=== PATIENT | male | born 1985 | race Caucasian/White ===

== ENCOUNTER 2017-10-27 16:48 | Outpatient (RCR) | payer BC ==
[~2017-10-27 16:48] MED LIST: ACHYD1T PO; CPR500T PO; HYDR-3876 PO; NITR-68 PO; NITR100C3 PO; POTA15TA PO; TAMS0.4C98 PO
--- NOTE | 2017-10-27 17:45 | Diagnostic Imaging Report ---
INDICATION: History of stones. TECHNIQUE: Three supine views of the abdomen at 05:26 p.m. CORRELATION STUDY: 10/21/2016. FINDINGS: There is a moderate amount of overlying bowel gas and stool obscuring detail for assessment of renal calcification. Given this, no definitive evidence of calcification over the renal silhouettes and/or along the expected course of the ureters. No evidence of bowel obstruction. Osseous structures are unremarkable. IMPRESSION: 1. No definitive evidence for presence of calcifications over the renal silhouette and/or expected course of the ureters, obscured by bowel gas and stool. Dictated by: Dictated on workstation # [id number]
== END 2018-01-25 | disposition home or self-care (01) ==
LOC: LAB 16:48
PROVIDERS: ATTEND Urology
DX: Z87.442 Personal history of urinary calculi (principal)
CPT/HCPCS: 36415; 74018; 82140; 82340; 82507; 82570; 83735; 83945; 83986; 84105; 84133; 84300; 84392; 84560

== ENCOUNTER → 2018-10-26 | Outpatient (CLI) | payer BC ==
--- NOTE | 2018-10-26 18:09 | Diagnostic Imaging Report ---
INDICATION: Pain. FINDINGS: Bowel gas pattern is normal. No suspicious calcifications. No gross elevation of the fecal load. IMPRESSION: No acute finding apparent. Dictated by: Dictated on workstation # [id number]
== END ==
LOC: RAD 16:52
PROVIDERS: ATTEND Urology
DX: R10.9 Unspecified abdominal pain (principal); Z87.442 Personal history of urinary calculi
CPT/HCPCS: 74018

== ENCOUNTER 2019-11-01 16:51 | Outpatient (RCR) | payer BC ==
[~2019-11-01 16:51] MED LIST changes: -TAMS0.4C98 PO; +TMSL.4C PO
--- NOTE | 2019-11-01 17:41 | Diagnostic Imaging Report ---
INDICATION: History of stone, checkup. COMPARISON STUDY: KUB from 10/26/2018. FINDINGS: Supine view of the abdomen demonstrates no visible renal or ureteral calculi. Slightly increased stool is seen throughout the colon. The osseous structures are normal. IMPRESSION: No calculi are present. Dictated by: Dictated on workstation # [id number]
== END 2020-01-30 | disposition home or self-care (01) ==
LOC: RAD 16:51 → EDSTATUS 11-28 13:40
PROVIDERS: ATTEND Urology
DX: Z87.442 Personal history of urinary calculi (principal)
CPT/HCPCS: 36415; 74018; 82140; 82340; 82507; 82570; 83735; 83945; 83986; 84105; 84133; 84300; 84392; 84560

== ENCOUNTER → 2020-10-30 | Outpatient (CLI) | payer BC ==
[~2020-10-30] MED LIST changes: -HYDR-3876 PO; +HYDR-3920 PO
--- NOTE | 2020-10-30 17:43 | Diagnostic Imaging Report ---
INDICATION: Follow-up renal calculi. COMPARISON: 11/01/2019 FINDINGS: Single supine radiographic view of the abdomen was obtained and demonstrates nondistended loops of small bowel. There is no large collection of free peritoneal air. Moderate air and stool are seen scattered throughout the colon. No unexpected extraosseous calcifications or radiopaque foreign bodies are seen. Bony structures show no gross acute abnormalities. IMPRESSION: 1. Nonobstructed small bowel gas pattern. 2. Moderate colonic air and stool. Please correlate for constipation Dictated by: Dictated on workstation # [id number]
== END ==
LOC: RAD 16:39
PROVIDERS: ATTEND Urology
DX: Z87.442 Personal history of urinary calculi (principal)
CPT/HCPCS: 74018

== ENCOUNTER → 2021-11-06 | Outpatient (CLI) | payer BC ==
--- NOTE | 2021-11-06 17:07 | Diagnostic Imaging Report ---
EXAMINATION: Abdomen 1 view. HISTORY: Renal stones. COMPARISON: 10/30/2020. FINDINGS: There is a moderate amount of gas and stool throughout the colon. Nonobstructive bowel gas pattern. No radiopaque foreign body or obvious radiopaque renal calculus. The lung bases are clear. The osseous structures are intact. IMPRESSION: Moderate stool burden without other acute abnormality in the abdomen. No visualized radiopaque renal calculus. Dictated by: Dictated on workstation # [id number]
== END ==
LOC: RAD 16:23
PROVIDERS: ATTEND Urology
DX: N20.0 Calculus of kidney (principal)
CPT/HCPCS: 74018